=== PATIENT | male | born 2000 ===

== ENCOUNTER 2019-10-21 21:20 | Inpatient (IN) | payer OTHER ==
[~2019-10-21] VITALS: Ht 180.3 cm; Wt 72.3 kg
--- NOTE | 2019-10-21 21:35 | NUR ---
.PT BIB FRIENDS, INSULIN DEPEND[employer] DI[employer], STATES THAT HE LAST TOOK INSULIN YESTERDAY, HAS NO LOCAL MD, LIVED IN THE ARE[place] FOR THE LAST 7 MONTHS, FRIEND NOTES HAS SEEN HIM SOMETIMES USING INSULIN, NOTES VERY POOR DIET. FRIEND HERE IS PTS BOSS AND LOCAL CONTACT AND IS CALLING PTS MOTHER DIANNE CRENSHAW [phone] PT MOTHER PERCY [phone] PT ABLE TO MOVE SELF FROM WHEELCHAIR WITH ASSISTANCE, AWARE THAT HE IS AT THE HOSPITAL AND AWARE OF THE YEAR AND SELF AND WHY HE IS HERE. DENIES EVER HAVING BEEN IN DKA, TAKES HUMALOG AND LANTUS, STATES DOSES "VARY". 2 IV'S STARTED, FLUID BOLUS GIVEN, WARM BLANKETS AND BEDSIDE NELSY PAW PLACED. FRIEND REMAINS AT BEDSIDE
[2019-10-21] MEDS ORDERED: REGULAR INSULIN 100 UNITS in SODIUM CHLORIDE 0.9% 99 ML IV PRN ×2 (21:43→22:55)
[2019-10-21] MEDS ORDERED: SODIUM CHLORIDE 0.9% 1,000 ML IV ONE (21:45)
[2019-10-21] MEDS ORDERED: HUMALOG (21:52)
[2019-10-21] MEDS ORDERED: LANTUS (21:52)
[2019-10-21] MEDS ORDERED: ONDANSETRON 2MG/ML, 2ML ONE (21:56)
[2019-10-21] MEDS ORDERED: SODIUM CHLORIDE 0.9% 1,000ML IVBOLUS ONE (22:00)
[2019-10-21] MEDS ORDERED: ONDANSETRON 2MG/ML, 2ML IVPush ONE (22:00)
[2019-10-21 22:07] LABS: BASOPHILS # (AUTO) 0.02 x10^3/uL (0-0.1); BASOPHILS % (AUTO) 0 % (0-1); EOSINOPHILS # (AUTO) 0.03 x10^3/uL (0-0.4); EOSINOPHILS % (AUTO) 0 % (1-7); LYMPHOCYTES # (AUTO) 1.34 x10^3/uL (1-3.4); LYMPHOCYTES % (AUTO) 8 % (22-44); MD NO; MEAN CORPUSCULAR HGB CONC 31.7 g/dL (33.2-36.2); MEAN CORPUSCULAR VOLUME 91.7 fL (81-97); MEAN PLATELET VOLUME 9.2 fL (7.4-10.4); MONOCYTES # (AUTO) 0.42 x10^3/uL (0.2-0.8); MONOCYTES % (AUTO) 3 % (2-9); NEUTROPHILS % (AUTO) 89 % (42-75); PLATELET COUNT 407 x10^3/uL (130-400); RED BLOOD COUNT 5.61 x10^6/uL (4.38-5.82); RED CELL DISTRIBUTION WIDTH 13.2 % (9.4-14.8)
[2019-10-21 22:08] LABS: PH, VENOUS 7.105 pH (7.320-7.420)
[2019-10-21 22:20] LABS: ALANINE AMINOTRANSFERASE 77 U/L (12-78); ALBUMIN 4.5 g/dL (3.4-5.0); ANION GAP 31 mmol/L (5-15); CALCIUM 9.2 mg/dL (8.5-10.1); CHLORIDE 88 mmol/L (98-107)
[2019-10-21 22:22] LABS: ALKALINE PHOSPHATASE 213 U/L (45-117); BILIRUBIN,TOTAL 0.7 mg/dL (0.2-1.0); TOTAL PROTEIN 8.7 g/dL (6.4-8.2)
[2019-10-21 22:22] LABS: O2 FLOW ROOM AIR L/min
[2019-10-21 22:42] LABS: ACETONE, SERUM Large (80mg/dL) (Negative)
--- NOTE | 2019-10-21 22:49 | NUR ---
HOSPITLIST TO BEDSIDE
[2019-10-21] MEDS ORDERED: D5%-0.45NACL+KCL 20MEQ 1,000 ML IV SCH (22:55)
[2019-10-21] MEDS: SODIUM CHLORIDE 0.9% 1,000 ML IV SCH (22:55)
--- NOTE | 2019-10-21 22:55 | NUR ---
FSBG of "HI" noted on glucometer. insulin infusion bumped up by 1 U/hour.
--- NOTE | 2019-10-21 22:56 | NUR ---
FSBG of "HI" noted on glucometer. insulin infusion bumped up by 1 U/hour to 8.3 U/hour.
[2019-10-21] MEDS ORDERED: BISACODYL 10 MG SUPP PR PRN (23:00)
[2019-10-21] MEDS ORDERED: MORPHINE SULFATE 4 MG/ML, 1ML IVPush PRN (23:00)
[2019-10-21] MEDS ORDERED: ACETAMINOPHEN 325 MG TABLET PO PRN (23:00)
[2019-10-21] MEDS ORDERED: ONDANSETRON 4 MG TABLET PO PRN (23:00)
[2019-10-21] MEDS ORDERED: OXYcodone IR 5MG TABLET PO PRN (23:00)
[2019-10-21] MEDS ORDERED: POLYETHYLENE GLYCOL 17 GM PACKET PO PRN (23:00)
[2019-10-21] MEDS ORDERED: PROMETHAZINE 25 MG/ML, 1ML IM PRN (23:00)
[2019-10-21] MEDS ORDERED: ONDANSETRON 2MG/ML, 2ML IV PRN (23:00)
[2019-10-21] MEDS ORDERED: LACTATED RINGERS 1,000 ML IVBOLUS ONE (23:00)
[2019-10-21] MEDS ORDERED: DOCUSATE 100 MG CAPSULE PO PRN (23:00)
--- NOTE | 2019-10-21 23:03 | NUR ---
sleeping quietly, resp rate 16 at this time. Awaken verbal.
[2019-10-21 23:34] LABS: ANION GAP 24 mmol/L (5-15); CHLORIDE 102 mmol/L (98-107); CHOLESTEROL, TOTAL 238 mg/dL (140-239); CREATININE 1.49 mg/dL (0.7-1.3); TRIGLYCERIDES 756 mg/dL (50-200)
[2019-10-21 23:45] LABS: CHOL/HDL RATIO 8.2; FREE T4 (FREE THYROXINE) 0.98 ng/dL (0.76-1.46); HDL CHOL % 12 % (26-37); HDL CHOLESTEROL (DIRECT) 29 mg/dL (40-60)
[2019-10-22] MEDS: HEPARIN 5,000 UNITS/ML, 1ML SQ SCH ×4 (00:21→23:35)
[2019-10-22 01:03] VITALS: BP 133/77
[2019-10-22 01:18] LABS: MICROSCOPIC NOT IND
[2019-10-22 01:23] LABS: CULTURE INDICATED? NO
[2019-10-22 01:30] LABS: AMPHETAMINE SCREEN, URINE Negative (Negative); BARBITURATE SCREEN, URINE Negative (Negative); BENZODIAZEPINE SCREEN, URINE Negative (Negative); CANNABINOID SCREEN, URINE Negative (Negative); COCAINE SCREEN, URINE Negative (Negative); METHADONE SCREEN, URINE Negative (Negative); OPIATE SCREEN, URINE Negative (Negative)
[2019-10-22] MEDS: SODIUM CHLORIDE 0.9% 1,000 ML IV SCH ×4 (03:01→23:36)
[2019-10-22 04:57] LABS: ANION GAP 13 mmol/L (5-15); CALCIUM 8.4 mg/dL (8.5-10.1); CHLORIDE 111 mmol/L (98-107)
[2019-10-22 05:01] LABS: CREATININE 1.31 mg/dL (0.7-1.3)
[2019-10-22] MEDS: INSULIN LISPRO 100 UNITS/ML, PEN SQ-INSULIN SCH ×4 (06:27→20:07)
[2019-10-22] MEDS ORDERED: INSULIN GLARGINE 100 UNITS/ML, PEN SQ-INSULIN SCH ×2 (07:30→19:30)
[2019-10-22 09:35] LABS: ANION GAP 15 mmol/L (5-15); CALCIUM 8.2 mg/dL (8.5-10.1); CHLORIDE 108 mmol/L (98-107)
[2019-10-22 09:36] LABS: CREATININE 1.28 mg/dL (0.7-1.3)
[2019-10-22 13:58] VITALS: BP 119/77
[2019-10-22] MEDS ORDERED: SODIUM CHLORIDE NASAL SPRAY 45ML BOTTLE NAS PRN (17:30)
[2019-10-22 18:19] VITALS: BP 128/89
[2019-10-22] MEDS: INSULIN GLARGINE 100 UNITS/ML, PEN SQ-INSULIN SCH (20:07)
[2019-10-23 00:08] LABS: ANION GAP 9 mmol/L (5-15); CALCIUM 8.4 mg/dL (8.5-10.1); CHLORIDE 108 mmol/L (98-107); CREATININE 1.03 mg/dL (0.7-1.3)
[2019-10-23 01:02] VITALS: BP 121/78
[2019-10-23 06:36] LABS: CHLORIDE 110 mmol/L (98-107)
[2019-10-23] MEDS: INSULIN LISPRO 100 UNITS/ML, PEN SQ-INSULIN SCH (07:00)
[2019-10-23] MEDS: SODIUM CHLORIDE 0.9% 1,000 ML IV SCH (07:08)
[2019-10-23 07:22] LABS: ANION GAP 7 mmol/L (5-15); CALCIUM 8.5 mg/dL (8.5-10.1); CREATININE 0.97 mg/dL (0.7-1.3)
[2019-10-23] MEDS: INSULIN GLARGINE 100 UNITS/ML, PEN SQ-INSULIN SCH (07:30)
[2019-10-23 07:39] LABS: BASOPHILS # (AUTO) 0.03 x10^3/uL (0-0.1); BASOPHILS % (AUTO) 0 % (0-1); EOSINOPHILS # (AUTO) 0.28 x10^3/uL (0-0.4); EOSINOPHILS % (AUTO) 3 % (1-7); LYMPHOCYTES # (AUTO) 2.29 x10^3/uL (1-3.4); LYMPHOCYTES % (AUTO) 22 % (22-44); MD SCAN; MEAN CORPUSCULAR HEMOGLOBIN 29.8 pg (27.5-34.5); MEAN CORPUSCULAR HGB CONC 33.7 g/dL (33.2-36.2); MEAN CORPUSCULAR VOLUME 88.2 fL (81-97); MEAN PLATELET VOLUME 8.3 fL (7.4-10.4); MONOCYTES # (AUTO) 0.56 x10^3/uL (0.2-0.8); MONOCYTES % (AUTO) 5 % (2-9); NEUTROPHILS # (AUTO) 7.18 x10^3/uL (1.8-6.8); NEUTROPHILS % (AUTO) 70 % (42-75); PLATELET COUNT 326 x10^3/uL (130-400); RED BLOOD COUNT 4.29 x10^6/uL (4.38-5.82); RED CELL DISTRIBUTION WIDTH 12.7 % (9.4-14.8)
[2019-10-23] MEDS: HEPARIN 5,000 UNITS/ML, 1ML SQ SCH (08:16)
[2019-10-23 09:12] VITALS: BP 125/77
[2019-10-23 09:24] LABS: FIO2 ROOM AIR %
== END 2019-10-23 10:57 | disposition left against medical advice (07) | DRG 637 ==
LOC: ED 23:00 → CCU 23:46 → 3N 10-22 18:15
PROVIDERS: ADMIT Internal Medicine; ATTEND Hospitalist
DX: E10.10 Type 1 diabetes mellitus with ketoacidosis without coma (principal); G93.41 Metabolic encephalopathy; N17.0 Acute kidney failure with tubular necrosis; E10.649 Type 1 diabetes mellitus with hypoglycemia without coma; E86.0 Dehydration; F17.210 Nicotine dependence, cigarettes, uncomplicated; Z83.3 Family history of diabetes mellitus; Z86.39 Personal history of other endocrine, nutritional and metabolic disease; Z53.29 Procedure and treatment not carried out because of patient's decision for other reasons
CPT/HCPCS: 36415; 36600; 71045; 80048; 80053; 80061; 80307; 81003; 82010; 82803; 82962; 83036; 83690; 83735; 84100; 84439; 84443; 85025; 87040; 87081; 93005; 96361; 96374; 99291; G0378; J1644; J2405; J1815; J3480; J7030; J7120

== ENCOUNTER 2019-12-18 20:07 | Inpatient (IN) | payer OTHER ==
[~2019-12-18] VITALS: Ht 180.3 cm; Wt 75.4 kg
[~2019-12-18 20:07] MED LIST: HUMALOG; LANTUS
[2019-12-18] MEDS ORDERED: DEXTROSE 50%, 50ML SYRINGE ONE ×2 (20:17→22:13)
[2019-12-18] MEDS ORDERED: DEXTROSE 50%, 50ML SYRINGE IVPush ONE ×2 (20:30→22:30)
[2019-12-18 20:39] LABS: BASOPHILS # (AUTO) 0.02 x10^3/uL (0-0.1); BASOPHILS % (AUTO) 0 % (0-1); EOSINOPHILS # (AUTO) 0.05 x10^3/uL (0-0.4); EOSINOPHILS % (AUTO) 1 % (1-7); LYMPHOCYTES # (AUTO) 0.76 x10^3/uL (1-3.4); LYMPHOCYTES % (AUTO) 11 % (22-44); MD NO; MEAN CORPUSCULAR HEMOGLOBIN 29.6 pg (27.5-34.5); MEAN CORPUSCULAR HGB CONC 33.4 g/dL (33.2-36.2); MEAN CORPUSCULAR VOLUME 88.5 fL (81-97); MEAN PLATELET VOLUME 8.5 fL (7.4-10.4); MONOCYTES # (AUTO) 0.65 x10^3/uL (0.2-0.8); MONOCYTES % (AUTO) 9 % (2-9); NEUTROPHILS # (AUTO) 5.72 x10^3/uL (1.8-6.8); NEUTROPHILS % (AUTO) 79 % (42-75); PLATELET COUNT 253 x10^3/uL (130-400); RED BLOOD COUNT 4.67 x10^6/uL (4.38-5.82); RED CELL DISTRIBUTION WIDTH 13.2 % (9.4-14.8)
[2019-12-18 20:45] LABS: ALANINE AMINOTRANSFERASE 89 U/L (12-78); ALBUMIN 3.9 g/dL (3.4-5.0); ANION GAP 6 mmol/L (5-15); CALCIUM 8.6 mg/dL (8.5-10.1); CHLORIDE 108 mmol/L (98-107); CREATININE 0.95 mg/dL (0.7-1.3)
[2019-12-18 20:47] LABS: ALKALINE PHOSPHATASE 117 U/L (45-117); BILIRUBIN,TOTAL 0.1 mg/dL (0.2-1.0); TOTAL PROTEIN 7.3 g/dL (6.4-8.2)
--- NOTE | 2019-12-18 20:47 | NUR ---
report received from francesco miller.
--- NOTE | 2019-12-18 21:07 | NUR ---
bg 95 at this time. pt states "I feel much better."
--- NOTE | 2019-12-18 21:46 | NUR ---
pt sleeping in [facility]. resps even and unlabored. all monitors in place. call light within reach.
--- NOTE | 2019-12-18 21:56 | NUR ---
Blood Glucose rechecked - 56 mg /dl. aware.
[2019-12-18] MEDS: DEXTROSE 5% 1,000 ML IV SCH (21:57)
--- NOTE | 2019-12-18 22:25 | NUR ---
PT MEDICATED PER EMAR. PT TOLERATED WELL. D5W INFUSING AT THIS TIME.
[2019-12-18] MEDS ORDERED: DEXTROSE 4 GM TAB.CHEW PO PRN (23:00)
[2019-12-18] MEDS ORDERED: GLUCAGON 1 MG IM PRN (23:00)
[2019-12-18] MEDS ORDERED: ONDANSETRON 2MG/ML, 2ML IVPush PRN (23:00)
[2019-12-18] MEDS ORDERED: DEXTROSE 50%, 50ML SYRINGE IVPush PRN (23:00)
[2019-12-18] MEDS ORDERED: POTASSIUM CHLORIDE 20 MEQ TAB.ER.PRT PO ONE (23:00)
[2019-12-18] MEDS ORDERED: ACETAMINOPHEN 325 MG TABLET PO PRN (23:00)
--- NOTE | 2019-12-18 23:07 | NUR ---
REPORT GIVEN TO LACEY MOYA. ALL QUESTIONS ANSWERED.
[2019-12-18 23:24] VITALS: BP 112/75
[2019-12-19 01:26] VITALS: BP 121/81
[2019-12-19] MEDS: DEXTROSE 5% 1,000 ML IV SCH ×6 (02:57→12:40)
[2019-12-19] MEDS ORDERED: LACTATED RINGERS 1,000 ML IV SCH (04:30)
[2019-12-19 05:33] LABS: BASOPHILS # (AUTO) 0.02 x10^3/uL (0-0.1); BASOPHILS % (AUTO) 1 % (0-1); CHLORIDE 103 mmol/L (98-107); EOSINOPHILS # (AUTO) 0.05 x10^3/uL (0-0.4); EOSINOPHILS % (AUTO) 1 % (1-7); LYMPHOCYTES % (AUTO) 24 % (22-44); MD NO; MEAN CORPUSCULAR HEMOGLOBIN 29.8 pg (27.5-34.5); MEAN CORPUSCULAR VOLUME 90.2 fL (81-97); MEAN PLATELET VOLUME 8.5 fL (7.4-10.4); MONOCYTES # (AUTO) 0.51 x10^3/uL (0.2-0.8); MONOCYTES % (AUTO) 13 % (2-9); NEUTROPHILS # (AUTO) 2.33 x10^3/uL (1.8-6.8); NEUTROPHILS % (AUTO) 61 % (42-75); PLATELET COUNT 196 x10^3/uL (130-400); RED BLOOD COUNT 4.44 x10^6/uL (4.38-5.82); RED CELL DISTRIBUTION WIDTH 13.2 % (9.4-14.8)
[2019-12-19 05:48] LABS: ALANINE AMINOTRANSFERASE 83 U/L (12-78); ALBUMIN 3.1 g/dL (3.4-5.0); ALKALINE PHOSPHATASE 108 U/L (45-117); ANION GAP 6 mmol/L (5-15); BILIRUBIN,TOTAL 0.4 mg/dL (0.2-1.0); CREATININE 0.88 mg/dL (0.7-1.3); TOTAL PROTEIN 6.1 g/dL (6.4-8.2)
[2019-12-19 07:31] VITALS: BP 98/72
[2019-12-19] MEDS: SODIUM CHLORIDE FLUSH 10ML SYR IVF SCH ×2 (09:00→21:10)
[2019-12-19 12:51] LABS: BASOPHILS # (AUTO) 0.02 x10^3/uL (0-0.1); BASOPHILS % (AUTO) 1 % (0-1); EOSINOPHILS # (AUTO) 0.04 x10^3/uL (0-0.4); EOSINOPHILS % (AUTO) 1 % (1-7); LYMPHOCYTES % (AUTO) 21 % (22-44); MD NO; MEAN CORPUSCULAR HEMOGLOBIN 29.6 pg (27.5-34.5); MEAN CORPUSCULAR VOLUME 89.7 fL (81-97); MEAN PLATELET VOLUME 9.2 fL (7.4-10.4); MONOCYTES # (AUTO) 0.52 x10^3/uL (0.2-0.8); MONOCYTES % (AUTO) 12 % (2-9); NEUTROPHILS # (AUTO) 2.81 x10^3/uL (1.8-6.8); NEUTROPHILS % (AUTO) 66 % (42-75); PLATELET COUNT 200 x10^3/uL (130-400); RED BLOOD COUNT 4.75 x10^6/uL (4.38-5.82); RED CELL DISTRIBUTION WIDTH 13.5 % (9.4-14.8)
[2019-12-19 12:59] LABS: CHLORIDE 99 mmol/L (98-107)
[2019-12-19 13:00] LABS: ALANINE AMINOTRANSFERASE 88 U/L (12-78); ALBUMIN 3.2 g/dL (3.4-5.0); ANION GAP 12 mmol/L (5-15); CALCIUM 8.5 mg/dL (8.5-10.1); CREATININE 1.02 mg/dL (0.7-1.3)
[2019-12-19 13:02] LABS: ALKALINE PHOSPHATASE 124 U/L (45-117); BILIRUBIN,TOTAL 0.6 mg/dL (0.2-1.0); TOTAL PROTEIN 6.5 g/dL (6.4-8.2)
[2019-12-19 13:28] VITALS: BP 124/67
[2019-12-19] MEDS ORDERED: SODIUM CHLORIDE 0.9% 1,000ML IVBOLUS ONE (14:00)
[2019-12-19] MEDS: INSULIN GLARGINE 100 UNITS/ML, PEN SQ-INSULIN SCH (14:43)
[2019-12-19] MEDS: POTASSIUM CHLORIDE 10 MEQ in SODIUM CHLORIDE 0.9% 1,000 ML IV SCH (14:43)
[2019-12-19] MEDS ORDERED: INSULIN REGULAR 100 UNITS/ML, 3ML VIAL SQ-INSULIN SCH (16:00)
[2019-12-19] MEDS ORDERED: INSULIN REGULAR, HUMAN 100 UNIT/ML 3ML VIAL LOW DOSE SS SQ-INSULIN SCH (16:00)
[2019-12-19] MEDS: INSULIN LISPRO 100 UNITS/ML, PEN SQ-INSULIN SCH ×2 (16:12→21:11)
[2019-12-19 19:58] VITALS: BP 121/75
[2019-12-20] MEDS: POTASSIUM CHLORIDE 10 MEQ in SODIUM CHLORIDE 0.9% 1,000 ML IV SCH ×2 (01:29→09:45)
[2019-12-20 01:30] VITALS: BP_SYST 122; BP_SYST 212; BP_DIAS 81
[2019-12-20] MEDS: INSULIN LISPRO 100 UNITS/ML, PEN SQ-INSULIN SCH ×2 (07:00→11:05)
[2019-12-20 07:19] VITALS: BP 135/78
[2019-12-20 08:10] LABS: BASOPHILS # (AUTO) 0.02 x10^3/uL (0-0.1); BASOPHILS % (AUTO) 0 % (0-1); EOSINOPHILS # (AUTO) 0.16 x10^3/uL (0-0.4); EOSINOPHILS % (AUTO) 2 % (1-7); LYMPHOCYTES # (AUTO) 1.26 x10^3/uL (1-3.4); LYMPHOCYTES % (AUTO) 17 % (22-44); MD NO; MEAN CORPUSCULAR HEMOGLOBIN 29.4 pg (27.5-34.5); MEAN CORPUSCULAR HGB CONC 32.7 g/dL (33.2-36.2); MEAN CORPUSCULAR VOLUME 89.9 fL (81-97); MEAN PLATELET VOLUME 8.1 fL (7.4-10.4); MONOCYTES # (AUTO) 0.63 x10^3/uL (0.2-0.8); MONOCYTES % (AUTO) 9 % (2-9); NEUTROPHILS # (AUTO) 5.23 x10^3/uL (1.8-6.8); NEUTROPHILS % (AUTO) 72 % (42-75); PLATELET COUNT 218 x10^3/uL (130-400); RED BLOOD COUNT 4.79 x10^6/uL (4.38-5.82); RED CELL DISTRIBUTION WIDTH 13.5 % (9.4-14.8)
[2019-12-20 08:15] LABS: ALANINE AMINOTRANSFERASE 72 U/L (12-78); CALCIUM 8.5 mg/dL (8.5-10.1); CHLORIDE 108 mmol/L (98-107); CREATININE 0.86 mg/dL (0.7-1.3)
[2019-12-20 08:23] LABS: ANION GAP 6 mmol/L (5-15)
[2019-12-20 08:24] LABS: ALKALINE PHOSPHATASE 113 U/L (45-117); BILIRUBIN,TOTAL 0.2 mg/dL (0.2-1.0); TOTAL PROTEIN 6.2 g/dL (6.4-8.2)
[2019-12-20] MEDS: INSULIN GLARGINE 100 UNITS/ML, PEN SQ-INSULIN SCH (09:00)
[2019-12-20] MEDS: SODIUM CHLORIDE FLUSH 10ML SYR IVF SCH (09:45)
[2019-12-20] MEDS ORDERED: HUMALOG (11:28)
[2019-12-20] MEDS ORDERED: INSU100I11 SQ-INSULIN (11:30)
[2019-12-20] MEDS ORDERED: INSU100I13 SQ-INSULIN (11:30)
== END 2019-12-20 13:00 | disposition home or self-care (01) | DRG 637 ==
LOC: ED 20:30 → EDIP 22:24 → 3N 23:24
PROVIDERS: ADMIT Family Medicine; ATTEND Family Medicine
DX: E10.649 Type 1 diabetes mellitus with hypoglycemia without coma (principal); G93.41 Metabolic encephalopathy; F17.200 Nicotine dependence, unspecified, uncomplicated; Z79.4 Long term (current) use of insulin; Z83.3 Family history of diabetes mellitus
CPT/HCPCS: 36415; 80053; 82962; 83036; 84443; 85025; G0378; J1815; J3480; J7070; J7030; J7120